=== PATIENT | male | born 1950 | race Caucasian/White ===

== ENCOUNTER 2022-01-02 09:59 | Outpatient (CLI) | payer MEDICARE, SELFPAY ==
--- NOTE | 2022-01-02 11:00 | NEURO_ITS ---
Impression: # Complains of numbness of feet. # Normal motor nerve conduction study. # Asymmetrical sensory neuropathy. # Normal needle/EMG exam. Nerve Conduction Studies Anti Sensory Summary Table Stim Site NR Peak (ms) P-T Amp (?V) Site1 Site2 Delta-P (ms) Dist (cm) Dorian (m/s) Left Sup Fibular Anti Sensory (Ant Lat Mall) 14 cm 3.9 17.5 14 cm Ant Lat Mall 3.9 16.0 41 Right Sup Fibular Anti Sensory (Ant Lat Mall) NO RESPONSE 14 cm NR 14 cm Ant Lat Mall 16.0 Left Sural Anti Sensory (Lat Mall) Calf 3.9 9.4 Calf Lat Mall 3.9 16.0 41 Right Sural Anti Sensory (Lat Mall) NO RESPONSE Calf NR Calf Lat Mall 16.0 Motor Summary Table Stim Site NR Onset (ms) O-P Amp (mV) Site1 Site2 Delta-0 (ms) Dist (cm) Dorian (m/s) Left Peroneal Motor ([facility] Med) Ankle 4.2 3.9 Popit Ankle 9.5 38.0 40 Popit 13.7 2.6 Right Peroneal Motor ([facility] Med) Ankle 4.4 0.9 Popit Ankle 9.6 38.0 40 Popit 14.0 0.5 Left Tibial Motor (Abd Dumas Brev) Ankle 4.7 1.0 Knee Ankle 9.7 42.0 43 Knee 14.4 0.8 Right Tibial Motor (Abd Dumas Brev) Ankle 4.9 2.2 Knee Ankle 11.0 41.0 37 Knee 15.9 1.4 F Wave Studies NR F-Lat (ms) L-R F-Lat (ms) Left Peroneal (Mrkrs) (EDB) 57.16 0.55 Right Peroneal (Mrkrs) (EDB) 56.61 0.55 Left Tibial (Mrkrs) (Abd Hallucis) 57.08 0.47 Right Tibial (Mrkrs) (Abd Hallucis) 57.54 0.47 EMG Side Muscle Nerve Root Ins Act Fibs Amp Dur Recrt Comment Right AntTibialis Dp Br Fibular L4-5 Nml Nml Nml Nml Nml Right Gastroc Tibial S1-2 Nml Nml Nml Nml Nml Right Fibularis Long Sup Br Fibular L5-S1 Nml Nml Nml Nml Nml Right Flex Dig Long Tibial L5-S2 Nml Nml Nml Nml Nml Right Ext Dig Brev Dp Br Fibular L5, S1 Nml Nml Nml Nml Nml Left AntTibialis Dp Br Fibular L4-5 Nml Nml Nml Nml Nml Left Gastroc Tibial S1-2 Nml Nml Nml Nml Nml Left Fibularis Long Sup Br Fibular L5-S1 Nml Nml Nml Nml Nml Left Flex Dig Long Tibial L5-S2 Nml Nml Nml Nml Nml Left Ext Dig Brev Dp Br Fibular L5, S1 Nml Nml Nml Nml Nml MTDD
== END 2022-01-02 10:00 | disposition home or self-care (01) ==
PROVIDERS: PCP Family Medicine; Visit Provider Nurse Practitioner
DX: G62.9 Polyneuropathy, unspecified (principal)
CPT/HCPCS: 95886; 95910